=== PATIENT | female | born 2000 | race Caucasian/White ===

== ENCOUNTER 2025-02-28 03:09 | Day surgery (SDC) | payer MEDICAID ==
[2025-02-28 03:28] VITALS: BMI 31.6
[2025-02-28] MEDS ORDERED: hydrALAZINE 20 MG/ML VIAL SLOW IVP PRN (03:46)
[2025-02-28 05:00] LABS: Glucose, Urine (Dipstick) Normal (Negative); Leukocyte 500 (Negative); Protein, Urine (Dipstick) Negative (Neg-Trace); Specific Gravity, Urine 1.010 (1.005-1.030)
[2025-02-28 05:07] LABS: CAUTI Indications for Culture Pregnancy; RBC/HPF None Seen HPF (0-3)
[2025-02-28 05:08] LABS: Bacteria/HPF None Seen HPF (None Seen); Urine Culture Reflex Yes Yes
== END 2025-02-28 06:16 | disposition home or self-care (01) ==
LOC: CSHLD/OP 03:09
PROVIDERS: ATTEND Emergency Medicine
DX: O47.1 False labor at or after 37 completed weeks of gestation (principal); Z3A.38 38 weeks gestation of pregnancy; Z67.40 Type O blood, Rh positive
CPT/HCPCS: 81001; 87086; 99284

== ENCOUNTER 2025-02-28 19:54 | Inpatient (IN) | payer MEDICAID ==
[2025-02-28 20:42] LABS: Fetal Membranes Rupture RUPTURE DETECTED (No Rupture)
[2025-02-28] MEDS ORDERED: Diphenoxylate HCl/Atropine Tablet PO PRN ×2 (20:43)
[2025-02-28] MEDS ORDERED: Methylergonovine 0.2 MG/ML VIAL IM PRN (20:43)
[2025-02-28] MEDS ORDERED: Tranexamic Acid 1,000 MG/10 ML VIAL IVP PRN (20:43)
[2025-02-28] MEDS ORDERED: Carboprost 250 MCG/ML AMP IM PRN (20:43)
[2025-02-28] MEDS ORDERED: Ondansetron PF 4 MG/2 ML Vial IVP PRN ×2 (20:43→22:11)
[2025-02-28] MEDS ORDERED: Lidocaine 1% (PF) 30 ML VIAL SC PRN (20:43)
[2025-02-28] MEDS ORDERED: Ibuprofen 800 MG TAB PO PRN (20:43)
[2025-02-28] MEDS ORDERED: hydrALAZINE 20 MG/ML VIAL SLOW IVP PRN (20:43)
[2025-02-28] MEDS ORDERED: Oxytocin 30 units/NS 500 ML 500 ML IV SCH ×2 (20:45)
[2025-02-28 20:50] VITALS: BMI 31.2
[2025-02-28 21:29] LABS: Hematocrit 38.8 % (34.9-44.5); Hemoglobin 13.6 g/dL (12.0-15.5); Mean Corpuscular Hemoglobin 30.4 pg (27.0-33.0); Mean Corpuscular Volume 86.6 fL (81.6-98.3); Platelet Count 333 10x3/uL (150-450); Red Blood Cell (RBC) Count 4.48 10x6/uL (3.90-5.03); White Blood Cell (WBC) Count 18.70 10x3/uL (3.5-10.5)
[2025-02-28] MEDS ORDERED: Acetaminophen 500 MG TAB PO PRN (21:31)
[2025-02-28] MEDS: fentaNYL/Ropivacaine Epidural 100 ML ONE (22:01)
[2025-02-28 22:07] LABS: Hep B Surf Ag - L&D Non-Reactive S/CO (NonReactive); Syphilis Antibody Index 0.06 S/CO (<1.00 Non-Reactive)
[2025-02-28] MEDS ORDERED: Acetaminophen 325 MG TAB PO PRN (22:11)
[2025-02-28] MEDS ORDERED: diphenhydrAMINE 50 MG/ML VIAL IVP PRN (22:11)
[2025-02-28] MEDS ORDERED: fentaNYL 2 mcg/Ropivacaine 0.2% Epidural 100 ML CADD EPIDURAL SCH (22:15)
[2025-02-28] MEDS ORDERED: Communication Order-Pharmacy FS SCH (22:15)
[2025-03-01] MEDS ORDERED: Ondansetron PF 4 MG/2 ML Vial IVP PRN (03:28)
[2025-03-01] MEDS ORDERED: Lanolin Ointment 7 GM TUBE TOP PRN (03:28)
[2025-03-01] MEDS ORDERED: hydrALAZINE 20 MG/ML VIAL SLOW IVP PRN (03:28)
[2025-03-01] MEDS ORDERED: Bisacodyl 10 MG SUPP PR PRN (03:28)
[2025-03-01] MEDS ORDERED: Methylergonovine 0.2 MG/ML VIAL IM PRN (03:28)
[2025-03-01] MEDS ORDERED: Milk Of Magnesia 30 ML UDCUP PO PRN (03:28)
[2025-03-01] MEDS ORDERED: Oxytocin 30 units/NS 500 ML 500 ML IV SCH (03:30)
[2025-03-01] MEDS: Ibuprofen 800 MG TAB PO SCH (06:44)
[2025-03-01] MEDS ORDERED: Measles/Mumps/Rubella 10 MCG/0.5 ML VIAL SC ONE (09:00)
[2025-03-01] MEDS ORDERED: Bupivacaine HCl 0.5%/Epinephrine 1:200,000/PF 30 ml Vial ONE (10:00)
[2025-03-01] MEDS ORDERED: Bupivacaine 0.25% HCL 30 ML VIAL ONE (10:00)
[2025-03-01] MEDS: Ferrous Sulfate 325 MG TAB PO SCH (12:08)
[2025-03-02 07:47] VITALS: BP 116/67; TEMP 97.8
== END 2025-03-02 14:00 | disposition home or self-care (01) | DRG 807 ==
LOC: CSHLD/OP 19:54 → CSHLD 20:55 → CSHPP 03-01 06:25
PROVIDERS: ADMIT Emergency Medicine; ATTEND Emergency Medicine
PROC: 4A1HXCZ Monitoring of Products of Conception, Cardiac Rate, External Approach (ICD-10-PCS; 2025-02-28)
PROC: 3E0P7VZ Introduction of Hormone into Female Reproductive, Via Natural or Artificial Opening (ICD-10-PCS; 2025-02-28)
PROC: 10E0XZZ Delivery of Products of Conception, External Approach (ICD-10-PCS; principal; 2025-03-01)
PROC: 0HQ9XZZ Repair Perineum Skin, External Approach (ICD-10-PCS; 2025-03-01)
DX: O42.02 Full-term premature rupture of membranes, onset of labor within 24 hours of rupture (principal); Z37.0 Single live birth; Z3A.38 38 weeks gestation of pregnancy; O76 Abnormality in fetal heart rate and rhythm complicating labor and delivery; O70.0 First degree perineal laceration during delivery; Z79.82 Long term (current) use of aspirin; Z79.899 Other long term (current) drug therapy
CPT/HCPCS: 36415; 84112; 85027; 86780; 86850; 86900; 86901; 87340; J0665; J3010